=== PATIENT | male | born 1985 | race African-American/Black ===

== ENCOUNTER 2016-10-11 11:34 | Emergency (ER) | payer SELFPAY ==
[~2016-10-11] VITALS: Ht 170.2 cm; Wt 68.0 kg
[2016-10-11 11:50] VITALS: BP 121/61
[2016-10-11] MEDS ORDERED: IBUPROFEN 800 MG TABLET. PO ONE (12:00)
--- NOTE | 2016-10-11 12:04 | PHYS DOC ---
Past Medical History Past Medical History: No Pertinent History Past Surgical History: No Surgical History Alcohol Use: Occasionally Drug Use: None Adult General Chief Complaint Chief Complaint: KNEE INJURY HPI HPI Patient is a 30 year old male since emergency stating he is having left knee pain for the last 2 weeks. He states that he was playing football when he was clipped from behind. He states that he is having pain in the posterior part of the knee as well as the medial part of the knee. He does have some swelling noted on the medial part of the knee. He has minimal ability to bend the knee completely. Peripheral pulses 2+. Review of Systems Review of Systems Constitutional: Denies fever or chills [] Eyes: Denies change in visual acuity, redness, or eye pain [] HENT: Denies nasal congestion or sore throat [] Respiratory: Denies cough or shortness of breath [] Cardiovascular: No additional information not addressed in HPI [] GI: Denies abdominal pain, nausea, vomiting, bloody stools or diarrhea [] : Denies dysuria or hematuria [] Musculoskeletal: Denies back pain. Left knee pain Integument: Denies rash or skin lesions [] Neurologic: Denies headache, focal weakness or sensory changes [] Endocrine: Denies polyuria or polydipsia [] Current Medications Current Medications Current Medications Medications (Trade) Dose Ordered Sig/[facility] Start Time Stop Time Status Last Admin Dose Admin Ibuprofen (Motrin) 800 mg 1X ONCE 10/11/16 12:00 10/11/16 12:01 DC 10/11/16 12:27 800 MG Allergies Allergies Allergies Coded Allergies Type Severity Reaction Last Updated Verified No Known Drug Allergies 10/11/16 No Physical Exam Physical Exam Constitutional: Well developed, well nourished, no acute distress, non-toxic appearance. [] HENT: Normocephalic, atraumatic, bilateral external ears normal, oropharynx moist, no oral exudates, nose normal. [] Eyes: PERRLA, EOMI, conjunctiva normal, no discharge. [] Neck: Normal range of motion, no tenderness, supple, no stridor. [] Cardiovascular:Heart rate regular rhythm Lungs & Thorax: no respiratory distress Skin: Warm, dry, no erythema, no rash. [] Back: No tenderness Extremities: Left medial knee tenderness, no cyanosis, no clubbing, ROM intact, no edema. Swelling about swelling noted on the left medial part of the knee area. No discoloration noted. No redness noted. Negative Beatrice been negative Wolff, negative valgus Neurologic: Alert and oriented X 3, normal motor function, normal sensory function, no focal deficits noted. [] Psychologic: Affect normal, judgement normal, mood normal. [] Current Patient Data Vital Signs Vital Signs Date Time Temp Pulse Resp B/P (MAP) Pulse Ox O2 Delivery O2 Flow Rate FiO2 10/11/16 11:50 98.4 54 14 99 Room Air 98.4 EKG EKG [] Radiology/Procedures Radiology/Procedures [facility] [address] [place], [place] [id number] IMAGING REPORT Signed PATIENT: REBEL IVAN ACCOUNT: [id number] : 1985 LOCATION: ER AGE: 30 SEX: M EXAM STATUS: PRE ER ORD. PHYSICIAN: SANTOS MEJIA APRN REASON: clipped from behind 2 weeks ago continues to have pain PROCEDURE: KNEE LEFT 4V Indication injury 2 weeks previously. Persistent Pain. AP oblique and lateral views of the left knee were obtained. No bony abnormality is seen DICTATED and SIGNED BY: LILI ARAMBULA MD DATE: 10/11/16 1224 CC: SANTOS MEJIA APRN; NON,STAFF ~ [] Course & Med Decision Making Course & Med Decision Making Pertinent Labs and Imaging studies reviewed. (See chart for details) X-rays negative for any bony abnormalities. Spoke with patient regards to wearing an Alexander wrap in which he can purchase asleep at any pharmacy. Also spoke with patient about ibuprofen 800 mg every 8 hours with food stop taking few develop an upset stomach. He'll be provided with orthopedic name and number to follow up with. Signs and symptoms to return back to emergency department provided. Patient agrees with discharge instructions treatment regimens and follow-up recommendations. [] Dragon Disclaimer Dragon Disclaimer This electronic medical record was generated, in whole or in part, using a voice recognition dictation system. Departure Departure Impression: Primary Impression: Left knee pain Disposition: HOME, SELF-CARE Condition: STABLE Referrals: NON,STAFF (PCP) Patient Instructions: Knee Pain, [id number] Additional Instructions: Activity as tolerated Ibuprofen 800 mg every 8 hours with food stop taking few develop an upset stomach. Obtain the Alexander wrap, sleep from any pharmacy to help provide support. Packs on 20 minutes off 20 minutes several times a day. Elevation as much as possible. Follow-up with orthopedic within the next week. Return back to emergency prior signs symptoms of become worse. SANTOS MEJIA APRN Oct 11, 2016 12:04
--- NOTE | 2016-10-11 12:28 | RAD ---
Indication injury 2 weeks previously. Persistent Pain. AP oblique and lateral views of the left knee were obtained. No bony abnormality is seen
== END 2016-10-11 12:55 | disposition home or self-care (01) ==
LOC: ER 11:34
DX: M25.562 Pain in left knee (principal); X58.XXXA Exposure to other specified factors, initial encounter; Y93.61 Activity, american tackle football; Y99.8 Other external cause status; Y92.89 Other specified places as the place of occurrence of the external cause
CPT/HCPCS: 73564; 99284